=== PATIENT | female | born 1955 | race African-American/Black ===

== ENCOUNTER → 2017-10-01 | Outpatient (CLI) | payer OTHER | LOC: M.RAD 08:27 | DX: Z12.31 Encounter for screening mammogram for malignant neoplasm of breast (principal) ==

== ENCOUNTER → 2017-10-08 | Outpatient (CLI) | payer OTHER | LOC: M.ULTRA 08:44 | DX: N63.10 Unspecified lump in the right breast, unspecified quadrant (principal); N63.20 Unspecified lump in the left breast, unspecified quadrant ==

== ENCOUNTER 2018-12-01 10:48 | Emergency (ER) | payer OTHER ==
[~2018-12-01] VITALS: Ht 167.6 cm; Wt 81.7 kg
[2018-12-01] MEDS ORDERED: ZYRTEC10 M5 PO (11:05)
[2018-12-01] MEDS ORDERED: GLUCOPHAGE1000 MG PO (11:05)
[2018-12-01] MEDS ORDERED: NORVASC 2.5 MG2.5 M1 PO (11:05)
[2018-12-01] MEDS ORDERED: CLONIDINE HCL0.2 M2 PO (11:05)
[2018-12-01] MEDS ORDERED: PROTONIX 20 MG20 MG PO (11:05)
[2018-12-01 12:17] LABS: ABSOLUTE BASOPHILS 0.1 thou/uL (0.0-0.2); ABSOLUTE EOSINOPHILS 0.2 thou/uL (0.0-0.7); ABSOLUTE LYMPHOCYTES 2.4 thou/uL (0.8-5.3); ABSOLUTE MONOCYTES 0.9 thou/uL (0.0-1.2); ABSOLUTE NEUTROPHILS 6.9 thou/uL (1.6-8.1); BASOPHILS 0.7 %; EOSINOPHILS 1.5 %; HEMATOCRIT 34.1 % (37.0-47.0); HEMOGLOBIN 10.9 gm/dL (12.0-15.0); LYMPHOCYTES 23.3 %; MCH 23.8 pg (26.0-34.0); MCHC 32.1 g/dL (28.0-37.0); MCV 74.2 fL (80.0-100.0); MONOCYTES 8.4 %; MPV 8.3 fl. (7.2-11.1); NUCLEATED RBCS 0 /100WBC; PLATELET COUNT* 376 thou/uL (150-400); POLYS 66.1 %; RBC 4.59 mil/uL (4.20-5.00); RDW-CV 19.3 % (10.5-14.5); WBC 10.4 thou/uL (4.0-11.0)
[2018-12-01 12:23] LABS: APTT 26.5 Seconds (25.0-31.3); PROTIME 10.2 Seconds (9.20-11.50)
[2018-12-01 12:26] LABS: CALCIUM 10.4 mg/dL (8.5-10.1); CREATININE 1.6 mg/dL (0.6-1.3); POTASSIUM 3.8 mmol/L (3.5-5.1)
[2018-12-01 12:29] LABS: URINE BILIRUBIN NEGATIVE (Negative); URINE BLOOD NEGATIVE (Negative); URINE CLARITY CLEAR; URINE COLOR STRAW; URINE GLUCOSE-RANDOM NEGATIVE (Negative); URINE KETONES NEGATIVE (Negative); URINE LEUKOCYTES-REFLEX NEGATIVE (Negative); URINE NITRITE-REFLEX NEGATIVE (Negative); URINE PROTEIN NEGATIVE (Negative); URINE SPECIFIC GRAVITY <= 1.005 (1.005-1.030); URINE UROBILINOGEN 0.2 E.U./dl (0.2-1.0)
[2018-12-01 12:36] LABS: ALBUMIN 4.3 g/dL (3.4-5.0); TOTAL BILIRUBIN 0.5 mg/dL (<0.1-1.0); TOTAL PROTEIN 8.7 g/dL (6.4-8.2)
[2018-12-01 13:00] VITALS: BP 160/91
--- NOTE | 2018-12-02 11:10 | EKG ---
[place] [address] ELECTROCARDIOGRAM REPORT Name: NI SAUNDERSNA Georgiana Room: [facility]#: [id number] Admission: 12/01/18 Attend Phys: Discharge: 12/01/18 Date of : 57 Report #: [id number] THIS REPORT FOR: //name// [facility] ED Test Date: 2018-12-01 Test Time: 10:57:47 Pat Name: DANGELO SAUNDERS Department: Room: Gender: F Elevator Adjuster: DAFNE : 1955 Requested By: Christopher Santos Order Number: [id number] MD: Manuel Rubio Measurements Intervals [place] Rate: 99 P: 68 MO: 168 QRS: 33 QRSD: 84 T: 36 QT: 338 QTc: 434 Interpretive Statements Sinus rhythm Probable left atrial enlargement Anterior infarct, old Minimal ST depression, lateral leads No previous ECG available for comparison Electronically Signed On 12-02-2018 11:09:56 CDT by Manuel Rubio [email or web address] <ELECTRONICALLY SIGNED> By: Manuel Rubio MD, [facility] 12/02/18 1109 1056 56 Manuel Rubio MD, FACC /EPI
== END 2018-12-01 13:05 | disposition home or self-care (01) ==
LOC: M.ERS 10:48
PROVIDERS: Family Medicine
DX: R53.1 Weakness (principal); I10 Essential (primary) hypertension; E11.9 Type 2 diabetes mellitus without complications; K21.9 Gastro-esophageal reflux disease without esophagitis; Z88.0 Allergy status to penicillin; Z88.8 Allergy status to other drugs, medicaments and biological substances; Z79.899 Other long term (current) drug therapy

== ENCOUNTER 2019-05-27 01:42 | Emergency (ER) | payer OTHER ==
[~2019-05-27] VITALS: Ht 167.6 cm; Wt 68.0 kg
[~2019-05-27 01:42] MED LIST: CLONIDINE HCL0.2 M2 PO; GLUCOPHAGE1000 MG PO; NORVASC 2.5 MG2.5 M1 PO; PROTONIX 20 MG20 MG PO; ZYRTEC10 M5 PO
[2019-05-27] MEDS ORDERED: VITAMIN B-121000 MC2 SUBLING (01:52)
[2019-05-27] MEDS ORDERED: VITAMIN D3250 MC2 PO (01:53)
[2019-05-27 02:02] LABS: URINE BILIRUBIN NEGATIVE (Negative); URINE BLOOD NEGATIVE (Negative); URINE CLARITY CLEAR; URINE COLOR YELLOW; URINE GLUCOSE-RANDOM NEGATIVE (Negative); URINE KETONES NEGATIVE (Negative); URINE LEUKOCYTES-REFLEX NEGATIVE (Negative); URINE NITRITE-REFLEX NEGATIVE (Negative); URINE PROTEIN NEGATIVE (Negative); URINE SPECIFIC GRAVITY 1.015 (1.005-1.030); URINE UROBILINOGEN 0.2 E.U./dl (0.2-1.0)
[2019-05-27 02:49] LABS: ABSOLUTE BASOPHILS 0.1 thou/uL (0.0-0.2); ABSOLUTE EOSINOPHILS 0.2 thou/uL (0.0-0.7); ABSOLUTE LYMPHOCYTES 1.8 thou/uL (0.8-5.3); ABSOLUTE MONOCYTES 0.5 thou/uL (0.0-1.2); ABSOLUTE NEUTROPHILS 5.7 thou/uL (1.6-8.1); BASOPHILS 1.3 %; EOSINOPHILS 2.3 %; HEMATOCRIT 30.2 % (37.0-47.0); HEMOGLOBIN 10.1 gm/dL (12.0-15.0); MCH 23.8 pg (26.0-34.0); MCHC 33.5 g/dL (28.0-37.0); MCV 71.2 fL (80.0-100.0); MONOCYTES 5.5 %; MPV 8.1 fl. (7.2-11.1); NUCLEATED RBCS 0 /100WBC; PLATELET COUNT* 333 thou/uL (150-400); POLYS 68.9 %; RBC 4.24 mil/uL (4.20-5.00); RDW-CV 19.7 % (10.5-14.5); WBC 8.2 thou/uL (4.0-11.0)
[2019-05-27 03:30] LABS: CREATININE 1.1 mg/dL (0.6-1.3); POTASSIUM 3.5 mmol/L (3.5-5.1)
[2019-05-27 03:31] LABS: CALCIUM 9.3 mg/dL (8.5-10.1)
[2019-05-27] MEDS ORDERED: CARAFATE 1 GM TA1 GM PO (04:25)
[2019-05-27 04:33] VITALS: BP 154/90
[2019-05-27 07:25] LABS: MICROCYTES 2+; PLATELET ESTIMATE ADEQUATE; TARGET CELLS 1+
[2019-05-27 07:26] LABS: ANISOCYTOSIS 2+; BURR CELLS 2+; HYPOCHROMASIA 1+; SCHISTOCYTES 1+
== END 2019-05-27 04:33 | disposition home or self-care (01) ==
LOC: M.ERS 01:42
PROVIDERS: Emergency Medicine
DX: R10.12 Left upper quadrant pain (principal); I10 Essential (primary) hypertension; E11.9 Type 2 diabetes mellitus without complications; K21.9 Gastro-esophageal reflux disease without esophagitis; Z90.49 Acquired absence of other specified parts of digestive tract; Z91.013 Allergy to seafood; Z88.0 Allergy status to penicillin; Z88.8 Allergy status to other drugs, medicaments and biological substances

== ENCOUNTER 2019-09-03 00:15 | Inpatient (IN) | payer OTHER ==
[~2019-09-03] VITALS: Ht 167.6 cm; Wt 70.4 kg
--- NOTE | ~2019-09-03 | PROC ---
[address] [address] PROCEDURE REPORT Name: DANGELO SAUNDERS Room: [address] IN M.R.#: [id number] Admission: 09/03/19 Attend Phys: Martniez Zapata MD Discharge: 09/06/19 Date of : 57 Report #: [id number] THIS REPORT FOR: //name// cc: Mimi Pacheco MD, Carrie W. MD ~ THIS REPORT FOR: //name// For GI report, please see the Provation report in Perceptive 7 content. By: 1058Medical Records Staff [facility] /BRANDIE
[~2019-09-03 00:15] MED LIST changes: +CARAFATE 1 GM TA1 GM PO; +VITAMIN B-121000 MC2 SUBLING; +VITAMIN D3250 MC2 PO
[2019-09-03 00:28] VITALS: BP 158/99
[2019-09-03 00:58] LABS: URINE BLOOD NEGATIVE (Negative); URINE CLARITY CLEAR; URINE COLOR YELLOW; URINE GLUCOSE-RANDOM NEGATIVE (Negative); URINE KETONES 1+ (Negative); URINE LEUKOCYTES-REFLEX 1+ (Negative); URINE NITRITE-REFLEX NEGATIVE (Negative); URINE PROTEIN TRACE (Negative); URINE SPECIFIC GRAVITY 1.025 (1.005-1.030); URINE UROBILINOGEN 0.2 E.U./dl (0.2-1.0)
[2019-09-03 01:08] LABS: URINE BILIRUBIN 2+ (Negative)
[2019-09-03 01:11] LABS: ICTOTEST (BILI CONFIRMATORY) Negative (Negative)
[2019-09-03 01:13] LABS: SQUAMOUS >10 Many /LPF (0-3)
[2019-09-03 01:14] LABS: HYALINE CASTS 0-3 Few /LPF (None Seen); URINE RBC 0-2 Rare /HPF (0-2); URINE WBC-REFLEX 6-15 Few /HPF (0-5)
[2019-09-03 01:15] LABS: BACTERIA-REFLEX >30 Many /HPF (None Seen); CRYSTALS None Seen /LPF (None Seen)
[2019-09-03 01:19] LABS: ABSOLUTE BASOPHILS 0.1 thou/uL (0.0-0.2); ABSOLUTE EOSINOPHILS 0.2 thou/uL (0.0-0.7); ABSOLUTE LYMPHOCYTES 2.2 thou/uL (0.8-5.3); ABSOLUTE MONOCYTES 0.7 thou/uL (0.0-1.2); ABSOLUTE NEUTROPHILS 7.3 thou/uL (1.6-8.1); BASOPHILS 0.8 %; EOSINOPHILS 1.8 %; HEMATOCRIT 35.8 % (37.0-47.0); HEMOGLOBIN 12.1 gm/dL (12.0-15.0); LYMPHOCYTES 21.2 %; MCH 26.7 pg (26.0-34.0); MCHC 33.7 g/dL (28.0-37.0); MCV 79.1 fL (80.0-100.0); MPV 8.4 fl. (7.2-11.1); NUCLEATED RBCS 0 /100WBC; PLATELET COUNT* 277 thou/uL (150-400); POLYS 69.2 %; RBC 4.52 mil/uL (4.20-5.00); RDW-CV 19.1 % (10.5-14.5); WBC 10.6 thou/uL (4.0-11.0)
[2019-09-03 01:42] LABS: CALCIUM 9.9 mg/dL (8.5-10.1); CREATININE 1.6 mg/dL (0.6-1.3); POTASSIUM 3.7 mmol/L (3.5-5.1)
[2019-09-03 02:02] LABS: ALBUMIN 4.6 g/dL (3.4-5.0); TOTAL BILIRUBIN 0.8 mg/dL (<0.1-1.0); TOTAL PROTEIN 7.8 g/dL (6.4-8.2)
--- NOTE | 2019-09-03 02:33 | NUR ---
MOISES NOTIFIED UPON PT RETURN FROM CT. PT CONNECTED TO BP AND PULSE OX SHE WAS PRIOR TO CT
[2019-09-03 03:44] VITALS: BP 172/72
--- NOTE | 2019-09-03 07:29 | NUR ---
[address] GRIMES, PER PHYSICIAN, PT CAN BE ON CLEAR LIQUID DIET
--- NOTE | 2019-09-03 10:45 | EKG ---
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: : 1955 Requested By: Garry Godwin Order Number: [id number] MD: Manuel Rubio Measurements Intervals [place] Rate: 105 P: 31 RI: 157 QRS: 12 QRSD: 78 T: 19 QT: 329 QTc: 435 Interpretive Statements Sinus tachycardia Probable left atrial enlargement Baseline wander in lead(s) V2 Compared to ECG 12/01/2018 10:57:47 Sinus rhythm no longer present Electronically Signed On 09-03-2019 10:44:50 CDT by Manuel Rubio [email or web address] <ELECTRONICALLY SIGNED> By: Manuel Rubio MD, [facility] 09/03/19 1044 0031 0031 Manuel Rubio MD, [facility] /EPI
[2019-09-03] MEDS ORDERED: PROAIR HFA8.5 GM INH (12:28)
[2019-09-03] MEDS ORDERED: CLONIDINE HCL0.2 M2 PO (12:28)
[2019-09-03 14:38] VITALS: BP 161/89
[2019-09-03 14:40] VITALS: BP 170/96
[2019-09-03] MEDS ORDERED: IRON325 PO (15:10)
--- NOTE | 2019-09-03 15:37 | NUR ---
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 ORDERED, TRACING SR- PT A&O X4- CONT OF BOWEL AND BLADDER- LCTA, DIMINISHED IN BASES- VS- 98.0 18 161/89 89 100% ON RA- AD SOFT/ROUND/NON-TENDER, BS X4 QUADS- LAST BM REPORTED 09/02/19- IV NOTED TO RIGHT AC INTACT WITH IVF AND PROTONIX INFUSSING PRESCRIBED- DAUGHTER AT SIDE AT TIME OF ADMISSION- 2ND 20GAUGE IV PLACED TO RIGHT FA FOR IV ABT USE UPON ADMISSION- PT DENIES ANY OPEN AREAS/SOARS- REPORTS NEUROPATHY PAIN TO LUE AND REFUSES TO USE FOR BP OR ANYTHING- PT REPORTS PAIN 10/10 GENERALIZED- PT TO BE NPO 12 PM FOR PLANNED EGD/COLOONOSCOPY IN AM- GI PREP TO BE STARTED SOON- CALL LIGHT AND PERSONAL BELONGINGS WITH IN REACH- ALL NEEDS MET AT THIS TIME-WCTM
[2019-09-03 16:00] VITALS: BP 149/81
[2019-09-03 20:10] VITALS: BP 152/82
[2019-09-04] VITALS: BP 105/67
[2019-09-04 04:00] VITALS: BP 117/69
--- NOTE | 2019-09-04 05:10 | NUR ---
PT CARE ASSUMED AT 1930. SAT MAINTAINED IN RA. ALERT AND ORIENTED X4. C/O PAIN, MEDICATION GIVEN PER EMAR. CALL LIGHT WITHIN REACH AND BED IN LOW POSITION. HOURLY ROUNDING DONE FOR PT SAFETY.
[2019-09-04 05:16] LABS: HEMATOCRIT 31.2 % (37.0-47.0); HEMOGLOBIN 10.7 gm/dL (12.0-15.0); MCH 26.8 pg (26.0-34.0); MCHC 34.2 g/dL (28.0-37.0); MCV 78.3 fL (80.0-100.0); MPV 8.2 fl. (7.2-11.1); RBC 3.99 mil/uL (4.20-5.00); RDW-CV 18.6 % (10.5-14.5); WBC 6.4 thou/uL (4.0-11.0)
[2019-09-04 05:34] LABS: ALBUMIN 3.6 g/dL (3.4-5.0); CALCIUM 8.4 mg/dL (8.5-10.1); CREATININE 1.1 mg/dL (0.6-1.3); MAGNESIUM 1.3 mg/dL (1.8-2.4); POTASSIUM 3.3 mmol/L (3.5-5.1); TOTAL BILIRUBIN 0.7 mg/dL (<0.1-1.0); TOTAL PROTEIN 6.9 g/dL (6.4-8.2)
[2019-09-04 07:40] VITALS: BP 137/77
--- NOTE | 2019-09-04 09:09 | NUR ---
ASSUMED CARE OF PT THIS AM AROUND 0715- SUPERVISOR MALTED MILK IN PLACE ORDERED, TRACING SR- UPON ASSESSMENT PT NOTED TO BE RESTING IN BED, WATCHING TV- PT A&O X 4- CONT OF BOWEL AND BLADDER- SBA TO COMMODE FOR SAFETY- LCTA, DIMINISHED IN BASES- RESP EVEN AND UN-LABORED- VSS, O2 SAT 100% ON RA- ABD SOFT/ROUND/NON-TENDER, BS X4 QUADS- BM NOTED THIS AM, REPORTED TO BE CLEAR FOR GI PROCEDURES PLANNED THIS SHIFT- PT NPO INDICATED- BS NOTED TO BE 130- IV NOTED TO RIGHT FA AND RIGHT HAND INTACT; IVF AND PROTONIX INFUSSING PRESCRIBED- PT DENIES ANY C/O PAIN/DISCOMFORT AT THIS TIME- CALL LIGHT AND PERSONAL BELONGINGS WITH IN REACH- PT MAKES NEEDS KNOWN- ALL NEEDS MET AT THIS TIME-WCTM
--- NOTE | 2019-09-04 09:34 | NUR ---
CM SPOKE TO THE PT TO DISCUSS HER HOME SITUATION, MOBILITY PRIOR TO ADMIT, DISCHARGE PLANNING, AND TO INFORM OF THE ROLE OF CM. PT INFORMS THAT PRIOR TO ADMIT SHE WAS ACTIVE, INDEPENDENT, AND 'WENT TO THE GYM 3 DAYS A WEEK'. PT RESIDES AT HOME ALONE. PT OWNS 0 DME, AND HAS 0 HX OF HH OR SNF. PT PLANS TO RETURN HOME AT D/C AND DOES NOT ANTICIPATE ANY NEEDS AT D/C. CM WILL REMAIN AVAILABLE TO ASSIST AND FOLLOW NEEDED.
[2019-09-04 12:09] VITALS: BP 120/73
[2019-09-04 18:27] VITALS: BP 146/80
--- NOTE | 2019-09-04 19:38 | CON ---
[address] [address] CONSULTATION Name: DANGELO SAUNDERS Room: [address] IN .R.#: [id number] Admission: 09/03/19 Attend Phys: Martinez Zapata MD Discharge: Date of : 57 Report #: [id number] THIS REPORT FOR: //name// cc: Mimi Pacheco MD, Carrie W. MD ~ THIS REPORT FOR: //name// CC: Mimi Zapata DICTATED BY: Laquita Hanley [facility] DATE OF SERVICE: 09/03/2019 Please note at the time of this dictation, the patient was seen and physically examined by myself. REASON FOR CONSULTATION: Melanotic stools, nausea, vomiting and abdominal pain. HISTORY OF PRESENT ILLNESS: This is a 64-year-old female who presented to the Emergency Room with having black tarry stools, which she states have been ongoing for an undisclosed amount of time. She is unable to give me an exact time frame, but she thinks it has been going on since June, in which her bowel habits changed at that time. She states she had 3 days of constipation and then a day of loose stools. Now, she is having multiple loose stools on a daily basis in which she notices that it is black in nature. The patient states she quit drinking coffee, thinking that would help, but that did not change her stool color at all. She is also having abdominal discomfort and she has had over the last few days, some nausea and vomiting in which she did notice some bright red blood with that. She denies any NSAID use at this time. The patient states that she has lost about 15 pounds since June as well. She had an EGD in October with Dr. Gerardo over at [facility]. We will obtain those records. She also states she has had colonoscopies done at [facility]. She states she had a history of polyps and then her second one, which was the most recent, she states she did not have any polyps at that time. ALLERGIES: PENICILLIN, STATINS, AND SHELLFISH. MEDICATIONS: From home, metformin, Norvasc, clonidine, Zyrtec, Protonix, vitamin B12 and D3. PAST MEDICAL HISTORY: Hypertension, diabetic, reflexive dystrophy, acid reflux. PAST SURGICAL HISTORY: [place] [address] CONSULTATION Name: DANGELO SAUNDERS Room: [address] IN [facility]#: [id number] Admission: 09/03/19 Attend Phys: Martinez Zapata MD Discharge: Date of : 57 Report #: [id number] FAMILY HISTORY: Maternal grandmother, colon cancer. SOCIAL HISTORY: Denies any alcohol except socially. Tobacco use negative and denies any illegal drug use. REVIEW OF SYSTEMS: Twelve-point review of systems is essentially negative except what is mentioned in the HPI. PHYSICAL EXAMINATION: VITAL SIGNS: Blood pressure 173/95, respirations are 12, pulse 94, and temperature 36.4. HEART: Regular rate and rhythm. LUNGS: Diminished, but clear. ABDOMEN: Positive bowel sounds in all 4 quadrants with upper quadrant, epigastric and to the upper chest area to palpation noted. LABORATORY DATA: Hemoglobin is 12.1, white count is 10.6 and platelets are 277. BUN is 29 and creatinine 1.6. She has got a GFR of 39. LFTs are normal. Lipase is 358. CT of the abdomen and pelvis shows mild narrowing in the mid transverse, otherwise negative. IMPRESSION: 1. Melanotic stool. 2. Change in bowel habits since June. 3. Nausea and vomiting. 4. Hematemesis. 5. Abnormal CT of the transverse colon. 6. Gastroesophageal reflux disease. 7. Weight loss, greater than 15 pounds since June. 8. Personal history of colon polyps. 9. Family history, maternal grandmother with colon cancer. PLAN: 1. Medical records from [place] on colonoscopy with leo and medical records from [facility] with Dr. Gerardo, EGD last October. 2. EGD and colonoscopy tomorrow with Dr. Gamboa. 3. Further recommendations to be made once the procedure has been performed. Thank you for allowing us to participate in this patient's care. Please do not hesitate to call with any questions in regard to this consult. <ELECTRONICALLY SIGNED> By: Nathaniel Gamboa DO 09/04/19 1938 1202 1223Gmaxine Gamboa DO /nt
[2019-09-04 20:10] VITALS: BP 147/83
[2019-09-05] VITALS: BP 154/78
[2019-09-05 04:00] VITALS: BP 130/74
[2019-09-05 04:47] LABS: HEMATOCRIT 27.9 % (37.0-47.0); HEMOGLOBIN 9.4 gm/dL (12.0-15.0); MCH 26.7 pg (26.0-34.0); MCHC 33.8 g/dL (28.0-37.0); MPV 8.5 fl. (7.2-11.1); RBC 3.53 mil/uL (4.20-5.00); RDW-CV 19.3 % (10.5-14.5); WBC 5.4 thou/uL (4.0-11.0)
[2019-09-05 05:09] LABS: CALCIUM 8.6 mg/dL (8.5-10.1); CREATININE 1.3 mg/dL (0.6-1.3); MAGNESIUM 1.5 mg/dL (1.8-2.4); POTASSIUM 3.8 mmol/L (3.5-5.1)
[2019-09-05 05:17] LABS: % SATURATION 12 % (20-39); IRON 38 ug/dL (50-175)
--- NOTE | 2019-09-05 07:53 | NUR ---
PT CARE ASSUMED AT 1930. SAT MAINTAINED IN RA. ALERT AND ORIENTED X4. C/O PAIN, MEDICATION GIVEN PER EMAR. CALL LOGHT WITHIN REACH AND BED IN LOW POSITION. HOURLY ROUNDING DONE FOR PT SAFETY.
[2019-09-05 11:25] VITALS: BP 126/84
--- NOTE | 2019-09-05 12:20 | NUR ---
ASSUMED PT CARE AT 0730, PT RESTING IN BED AND HAD NO INITIAL C/O PAIN OR SHORTNESS OF BREATH. PT WENT DOWN TO RADIOLOGY FOR SMALL BOWEL XRAY SERIES AT APPROX 0810 AND HAD C/O PAIN AFTER DRINKING BARIUM, PRN HYDROCODONE GIVEN W/ SOME RELIEF. PT BACK UP TO FLOOR AT APPROX 1120, NO C/O PAIN AT THIS POINT, FLUIDS INFUSING AT 100 ML/HR ALONG W/ ABX. MORNING MEDS GIVEN AT THIS POINT. PT GOAL IS TO KEEP FLUIDS RUNNING AND WORK ON POSSIBLE DC AFTER RESULTS OBTAINED FROM SMALL BOWEL SERIES. AM ASSESSMENT CHARTED, MEDS PER APR, HOURLY ROUNDING OBSERVED, FALL PRECAUTIONS IN PLACE, CALL LIGHT W/IN REACH, WILL CONTINUE POC.
[2019-09-05 12:23] VITALS: BP 159/89
[2019-09-05 15:54] VITALS: BP 133/91
--- NOTE | 2019-09-05 16:56 | NUR ---
Pt to dc home alone when ready; no CM needs expressed.
--- NOTE | 2019-09-05 17:42 | NUR ---
NO ACUTE CHANGES THROUGHOUT SHIFT, PT MAGNESIUM LOW THIS MORNING, MAG REPLACED PER E-LYTE PROTOCOL, AWAITING REDRAW. PT HAD NO C/O PAIN OR SHORTNESS OF BREATH. MEDS PER MAR, HOURLY ROUNDING OBSERVED, FALL PRECAUTIONS IN PLACE, CALL LIGHT W/IN REACH, WILL CONTINUE POC.
[2019-09-05 20:10] VITALS: BP 176/58
[2019-09-06] VITALS: BP 124/76
[2019-09-06 04:00] VITALS: BP 144/78
--- NOTE | 2019-09-06 06:03 | NUR ---
PT CARE ASSUMED AT 1930. SAT MAINTAINED IN RA. C/O PAIN, MEDICATION GIVEN PER EMAR. CALL LIGHT WITHIN REACH AND BED IN LOW POSITION. HOURLY ROUNDING DONE FOR PT SAFETY.
[2019-09-06 06:07] LABS: ABSOLUTE BASOPHILS 0.1 thou/uL (0.0-0.2); ABSOLUTE EOSINOPHILS 0.3 thou/uL (0.0-0.7); ABSOLUTE LYMPHOCYTES 1.6 thou/uL (0.8-5.3); ABSOLUTE MONOCYTES 0.5 thou/uL (0.0-1.2); ABSOLUTE NEUTROPHILS 3.8 thou/uL (1.6-8.1); BASOPHILS 1.3 %; EOSINOPHILS 4.3 %; HEMATOCRIT 29.5 % (37.0-47.0); HEMOGLOBIN 10.1 gm/dL (12.0-15.0); LYMPHOCYTES 26.1 %; MCH 26.6 pg (26.0-34.0); MCHC 34.2 g/dL (28.0-37.0); MCV 77.9 fL (80.0-100.0); MPV 8.6 fl. (7.2-11.1); NUCLEATED RBCS 0 /100WBC; PLATELET COUNT* 245 thou/uL (150-400); POLYS 60.3 %; RBC 3.79 mil/uL (4.20-5.00); RDW-CV 19.2 % (10.5-14.5); WBC 6.2 thou/uL (4.0-11.0)
[2019-09-06 06:25] LABS: CALCIUM 9.1 mg/dL (8.5-10.1); CREATININE 1.1 mg/dL (0.6-1.3); POTASSIUM 3.3 mmol/L (3.5-5.1)
[2019-09-06 07:30] VITALS: BP 137/90
[2019-09-06 12:00] VITALS: BP 124/74
[2019-09-06 14:23] VITALS: BP 124/74
[2019-09-09 16:06] LABS: HGB SOLUBILITY Positive (Negative); Hgb S 34.8 % (0.0)
--- NOTE | 2019-09-10 16:06 | PATH ---
[address] [address] PATHOLOGY RPT PROCEDURE Name: SHANNON TELLO Room: [address] IN .R.#: [id number] Admission: 09/03/19 Date of : 57 Discharge: 09/06/19 Report #: [id number] Path Case #: [id number] [facility] Accession Number: [id number] . 01 Material submitted: . sigmoid colon - SIGMOID COLON POLYP . 01 Clinical history: . GI bleed . 02 Diagnosis: Sigmoid colon polyp: - Tubular adenoma, negative for high-grade dysplasia. (TAYO:vincent; 09/08/2019) S 09/08/2019 1342 Local . 02 Electronically signed: . Christian Yun MD, Pathologist NPI- [id number] . 01 Gross description: . The specimen is received in formalin, labeled "Shannon Tello, sigmoid colon polyp". Received is a segment of pale fernandez soft tissue measuring 0.4 cm in maximum dimensions. The specimen is submitted entirely in cassette A1. (CAA; 09/05/2019) QAC/QAC 09/05/2019 1726 Local . 02 Pathologist provided ICD-10: D12.5 . 02 CPT . 713448 Specimen Comment: A courtesy copy of this report has been sent to [phone] Specimen Comment: [phone], Specimen Comment: Report sent to ,DR PETTY / DR BURNETT Specimen Comment: A duplicate report has been generated due to demographic updates. Performed at: [address], [place] [id number] MD Mitchell Infante MD Phone: [phone] Performed at: 02 [facility] [address], [place], [place] [id number] MD Christian Yun MD Phone: [phone]
== END 2019-09-06 16:06 | disposition home or self-care (01) | DRG 377 ==
LOC: M.ERS 00:15 → M.TBA-ER 02:09 → M.2W 02:09
PROVIDERS: Emergency Medicine Emergency Medical Services; Internal Medicine; Internal Medicine Gastroenterology; ADMIT Internal Medicine; ATTEND Internal Medicine
DX: K92.1 Melena (principal); N17.0 Acute kidney failure with tubular necrosis; N39.0 Urinary tract infection, site not specified; G90.50 Complex regional pain syndrome I, unspecified; D12.5 Benign neoplasm of sigmoid colon; K92.0 Hematemesis; K21.9 Gastro-esophageal reflux disease without esophagitis; I10 Essential (primary) hypertension; R63.4 Abnormal weight loss; F12.90 Cannabis use, unspecified, uncomplicated; K59.00 Constipation, unspecified; E11.9 Type 2 diabetes mellitus without complications; K64.4 Residual hemorrhoidal skin tags; Z90.49 Acquired absence of other specified parts of digestive tract; Z79.84 Long term (current) use of oral hypoglycemic drugs; Z79.899 Other long term (current) drug therapy; Z88.8 Allergy status to other drugs, medicaments and biological substances; Z88.0 Allergy status to penicillin; Z91.013 Allergy to seafood; Z80.0 Family history of malignant neoplasm of digestive organs; Z68.25 Body mass index [BMI] 25.0-25.9, adult; Z86.010 Personal history of colon polyps; Z03.818 Encounter for observation for suspected exposure to other biological agents ruled out

== ENCOUNTER → 2020-01-12 | Outpatient (CLI) | payer OTHER ==
[~2020-01-12] MED LIST changes: +IRON325 PO; +PROAIR HFA8.5 GM INH
== END ==
LOC: M.RAD 07:00
PROVIDERS: ATTEND Internal Medicine
DX: Z12.31 Encounter for screening mammogram for malignant neoplasm of breast (principal)

== ENCOUNTER 2021-04-13 04:56 | Inpatient (IN) | payer OTHER ==
[~2021-04-13] VITALS: Ht 170.2 cm; Wt 74.4 kg
[2021-04-13 05:00] VITALS: BP 170/113
[2021-04-13 05:51] LABS: HEMATOCRIT 37.3 % (37.0-47.0); HEMOGLOBIN 12.2 gm/dL (12.0-15.0); MCHC 32.8 g/dL (28.0-37.0); MCV 82.4 fL (80.0-100.0); RBC 4.52 mil/uL (4.20-5.00); RDW-CV 13.7 % (10.5-14.5); WBC 8.6 thou/uL (4.0-11.0)
[2021-04-13 06:01] LABS: ALCOHOL < 10 mg/dL (<10); CREATININE 2.2 mg/dL (0.6-1.3); POTASSIUM 3.7 mmol/L (3.5-5.1); SALICYLATE < 2.8 mg/dL (2.8-20.0)
[2021-04-13 06:03] LABS: ALBUMIN 4.2 g/dL (3.4-5.0); TOTAL BILIRUBIN 0.5 mg/dL (<0.1-1.0); TOTAL PROTEIN 7.9 g/dL (6.4-8.2)
[2021-04-13 06:05] LABS: ACETAMINOPHEN < 2 ug/mL (10-30)
[2021-04-13 06:13] LABS: URINE BILIRUBIN NEGATIVE (Negative); URINE BLOOD NEGATIVE (Negative); URINE CLARITY CLEAR; URINE COLOR STRAW; URINE GLUCOSE-RANDOM NEGATIVE (Negative); URINE KETONES NEGATIVE (Negative); URINE LEUKOCYTES 1+ (Negative); URINE NITRITE NEGATIVE (Negative); URINE PROTEIN NEGATIVE (Negative); URINE SPECIFIC GRAVITY 1.015 (1.005-1.030); URINE UROBILINOGEN 0.2 E.U./dl (0.2-1.0)
[2021-04-13 06:20] LABS: AMP/METHAMP Negative (Negative); BARBITURATES Negative (Negative); BENZODIAZEPINES Negative (Negative); COCAINE Negative (Negative); METHADONE Negative (Negative); OPIATES Negative (Negative); PCP Negative (Negative); THC Negative (Negative)
[2021-04-13 07:26] LABS: BE -7.3 mmol/L (-2 to +3); PO2 VENOUS 80.1 mmHg (35.0-45.0)
[2021-04-13 07:51] LABS: CASTS None Seen /LPF (None Seen); SQUAMOUS >10 Many /LPF (0-3)
[2021-04-13 07:52] LABS: CRYSTALS None Seen /LPF (None Seen); URINE RBC 0-2 Rare /HPF (0-2); URINE WBC 6-15 Few /HPF (0-5)
--- NOTE | 2021-04-13 09:15 | EKG ---
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1955 Requested By: Eli Mooney Order Number: [id number] MD: Manuel Rubio Measurements Intervals [place] Rate: 120 P: 43 [place]: 144 QRS: 11 QRSD: 77 T: 56 QT: 324 QTc: 458 Interpretive Statements Sinus tachycardia Probable left atrial enlargement Compared to ECG 09/03/2019 00:31:22 No significant changes Electronically Signed On 04-13-2021 9:04:23 MANAGER TAX by Manuel Rubio [email or web address] <ELECTRONICALLY SIGNED> By: Manuel Rubio MD, [facility] 04/13/21 0904 0509 0509 Manuel Rubio MD, [facility] /EPI
[2021-04-13 13:00] VITALS: BP 186/94
[2021-04-13 15:02] VITALS: BP 170/70
[2021-04-14 01:46] VITALS: BP 142/85
[2021-04-14 02:06] LABS: GLYCOHEMOGLOBIN (HGB A1C) 7.9 % (4.8-5.6)
[2021-04-14 04:22] LABS: ABSOLUTE EOSINOPHILS 0.2 thou/uL (0.0-0.7); ABSOLUTE LYMPHOCYTES 1.5 thou/uL (0.8-5.3); ABSOLUTE MONOCYTES 0.5 thou/uL (0.0-1.2); ABSOLUTE NEUTROPHILS 5.3 thou/uL (1.6-8.1); BASOPHILS 0.6 %; HEMATOCRIT 37.8 % (37.0-47.0); HEMOGLOBIN 12.4 gm/dL (12.0-15.0); MCH 26.9 pg (26.0-34.0); MCHC 32.8 g/dL (28.0-37.0); MCV 82.1 fL (80.0-100.0); MONOCYTES 6.6 %; MPV 8.2 fl. (7.2-11.1); NUCLEATED RBCS 0 /100WBC; PLATELET COUNT* 279 thou/uL (150-400); POLYS 69.8 %; RDW-CV 13.9 % (10.5-14.5); WBC 7.6 thou/uL (4.0-11.0)
[2021-04-14 04:33] LABS: CALCIUM 8.9 mg/dL (8.5-10.1); CREATININE 1.5 mg/dL (0.6-1.3); POTASSIUM 4.3 mmol/L (3.5-5.1)
[2021-04-14 05:52] VITALS: BP 146/83
[2021-04-14 08:00] VITALS: BP 1179/93
[2021-04-14 12:16] VITALS: BP 144/97
[2021-04-14 18:21] VITALS: BP 186/100
[2021-04-14 19:39] VITALS: BP 147/94
[2021-04-15] VITALS (7 sets, daily range): BP systolic 132–172; BP diastolic 76–97
[2021-04-15 10:06] LABS: CALCIUM 9.2 mg/dL (8.5-10.1); CREATININE 1.7 mg/dL (0.6-1.3); POTASSIUM 4.4 mmol/L (3.5-5.1)
[2021-04-15] MEDS ORDERED: CEFDINIR300 MG PO (11:15)
== END 2021-04-15 16:49 | disposition home health service (06) | DRG 689 ==
LOC: M.ERS 04:56 → M.TBA-ER 08:59 → M.2W 08:59
PROVIDERS: Personal Emergency Response Attendant; ADMIT Internal Medicine; ATTEND Internal Medicine
DX: N39.0 Urinary tract infection, site not specified (principal); N17.0 Acute kidney failure with tubular necrosis; G93.41 Metabolic encephalopathy; R65.11 Systemic inflammatory response syndrome (SIRS) of non-infectious origin with acute organ dysfunction; G90.50 Complex regional pain syndrome I, unspecified; E87.1 Hypo-osmolality and hyponatremia; Z20.822 Contact with and (suspected) exposure to COVID-19; J45.909 Unspecified asthma, uncomplicated; F41.9 Anxiety disorder, unspecified; F12.90 Cannabis use, unspecified, uncomplicated; B96.89 Other specified bacterial agents as the cause of diseases classified elsewhere; F22 Delusional disorders; I10 Essential (primary) hypertension; E11.9 Type 2 diabetes mellitus without complications; K21.9 Gastro-esophageal reflux disease without esophagitis; Z90.49 Acquired absence of other specified parts of digestive tract; Z79.84 Long term (current) use of oral hypoglycemic drugs; Z79.899 Other long term (current) drug therapy; Z88.0 Allergy status to penicillin; Z91.013 Allergy to seafood; Z88.8 Allergy status to other drugs, medicaments and biological substances; Z91.018 Allergy to other foods; Z72.89 Other problems related to lifestyle